=== PATIENT | male | born 1955 | race Two or more races ===

== ENCOUNTER 2020-02-13 19:02 | Emergency (ER) | payer OTHER ==
[~2020-02-13] VITALS: Ht 170.2 cm; Wt 104.3 kg
[2020-02-13] MEDS ORDERED: GLIPIZIDE ER10 MG (19:20)
== END 2020-02-13 22:08 | disposition home or self-care (01) ==
LOC: ER 19:02
DX: E11.621 Type 2 diabetes mellitus with foot ulcer (principal); L97.518 Non-pressure chronic ulcer of other part of right foot with other specified severity; L08.89 Other specified local infections of the skin and subcutaneous tissue

== ENCOUNTER 2021-07-01 22:13 | Emergency (ER) | payer OTHER ==
[~2021-07-01] VITALS: Ht 170.2 cm; Wt 104.3 kg
[~2021-07-01 22:13] MED LIST: GLIPIZIDE ER10 MG
[2021-07-01] MEDS ORDERED: LANTUS SOL100 UNIT/1 SQ (22:26)
[2021-07-02] MEDS ORDERED: AMOX-CLAV 875-1 EACH PO (06:15)
== END 2021-07-02 06:48 | disposition home or self-care (01) ==
LOC: ER 22:13
DX: L03.115 Cellulitis of right lower limb (principal); E13.628 Other specified diabetes mellitus with other skin complications; E13.65 Other specified diabetes mellitus with hyperglycemia; Z79.4 Long term (current) use of insulin